=== PATIENT | female | born 1980 | race Caucasian/White ===

== ENCOUNTER 2024-03-09 11:00 | Day surgery (SDC) | payer MEDICAID ==
[2024-03-09] VITALS (13 sets, daily range): BP systolic 100–114; BP diastolic 60–70; PULSE 57–77; RESP 10–18; TEMP 98.1; O2SAT 95–100
[~2024-03-09] VITALS: Ht 165.1 cm; Wt 88.5 kg
[2024-03-09] MEDS: cefazolin 2gm/D5W 100mL 100 ML IV ONE (05:30)
[~2024-03-09 11:00] MED LIST: HYDR-3964 PO
[2024-03-09] MEDS: famotidine 20mg tablet PO ONE (11:43)
[2024-03-09] MEDS: ringers solution, lacted 1,000 ML IV SCH (11:44)
[2024-03-09] MEDS: INDOCYANINE GREEN 25 MG/10 ML VIAL IV ONE (11:48)
[2024-03-09 12:13] LABS: BASOPHILS % (AUTO) 0.6 % (0-1); EOSINOPHILS # (AUTO) 0.1 X10'3 (0-0.9); EOSINOPHILS % (AUTO) 1.7 % (0-6); HEMATOCRIT 27.3 % (35.0-45.0); HEMOGLOBIN 8.4 g/dl (12.0-16.0); LYMPHOCYTES # (AUTO) 1.3 X10'3 (1.1-4.8); LYMPHOCYTES % (AUTO) 20.8 % (21-51); MEAN CORPUSCULAR HEMOGLOBIN 20.6 PG (27.0-31.0); MEAN CORPUSCULAR HGB CONC 30.7 g/dL (33.0-36.5); MEAN PLATELET VOLUME 6.9 FL (7.4-10.4); MONOCYTES # (AUTO) 0.7 X10'3 (0-0.9); MONOCYTES % (AUTO) 10.4 % (2-12); NEUTROPHILS # (AUTO) 4.2 X10'3 (1.8-7.7); NEUTROPHILS % (AUTO) 66.5 % (42-75); PLATELET COUNT 287 X10'3 (140-440); RED BLOOD COUNT 4.08 X10'6 (4.20-5.60); RED CELL DISTRIBUTION WIDTH 17.4 % (11.5-14.5); WHITE BLOOD COUNT 6.4 X10'3 (4.5-11.0)
[2024-03-09 12:24] LABS: ALANINE AMINOTRANSFERASE 24 U/L (12-78); ALBUMIN 3.6 G/DL (3.4-5.0); ALBUMIN/GLOBULIN RATIO 1.2 (1.1-1.5); ALKALINE PHOSPHATASE 63 IU/L (46-116); ANION GAP 9 (8-16); ASPARTATE AMINO TRANSFERASE 17 U/L (10-37); BILIRUBIN,TOTAL 0.5 MG/DL (0.1-1.0); BLOOD UREA NITROGEN 8 MG/DL (7-18); BUN/CREATININE RATIO 12.1 (10.0-20.0); CALCIUM 8.5 MG/DL (8.5-10.1); CHLORIDE 103 MMOL/L (99-107); CREATININE 0.66 MG/DL (0.40-0.90); GLUCOSE 86 MG/DL (70-104); POTASSIUM 3.6 MMOL/L (3.5-5.1); SODIUM 138 MMOL/L (135-145); TOTAL CARBON DIOXIDE 26.4 MMOL/L (24-32); TOTAL PROTEIN 6.6 G/DL (6.4-8.2); eCRCL 97 ML/MIN; eGFR > 90 ML/MIN
[2024-03-09 12:31] LABS: ANISOCYTOSIS 1+; MICROCYTOSIS 2+; PLATELET ESTIMATE NORMAL
[2024-03-09 12:32] LABS: HYPOCHROMASIA 1+; POIKILOCYTOSIS FEW; POLYCHROMASIA FEW
[2024-03-09 12:52] LABS: HCG SERUM QL NEGATIVE
[2024-03-09] MEDS ORDERED: LIDOcaine 1% W/epiNEPHrine 1:100,000 20ml vial ONE (13:38)
[2024-03-09] MEDS ORDERED: BUPIVAcaine 2.5mg/ml inj 50ml vial (contains preservative) ONE (13:38)
[2024-03-09] MEDS ORDERED: ringers solution, lacted 1,000 ML IV SCH (13:40)
[2024-03-09] MEDS ORDERED: morphine 4 MG/ML inj SYRINge IV PRN (13:40)
[2024-03-09] MEDS ORDERED: fentaNYL/PF 50MCG/1 ML 2ML syringe IV PRN ×2 (13:40)
[2024-03-09] MEDS ORDERED: hydrALAZINE 20mg/ml inj. IV PRN (13:40)
[2024-03-09] MEDS ORDERED: ondansetron/PF 4mg/2ml inj IV PRN (13:40)
[2024-03-09] MEDS ORDERED: labetalol 20mg/4ml (5mg/ml) syringe IV PRN (13:40)
[2024-03-09] MEDS ORDERED: LIDOcaine 1% 30ml preserv. free vial ONE (13:41)
[2024-03-09] MEDS ORDERED: fentaNYL/PF 50MCG/1 ML 2ML syringe ONE (13:53)
[2024-03-09] MEDS ORDERED: sevoflurane 250ml liquid IH ONE (13:53)
[2024-03-09] MEDS ORDERED: rocuronium 10mg/ml inj IV ONE (13:54)
[2024-03-09] MEDS ORDERED: LIDOcaine 2% (20mg/ml) 5ml vial ONE (13:54)
[2024-03-09] MEDS ORDERED: glycopyrrolate 0.2mg/ml inj ONE (13:54)
[2024-03-09] MEDS ORDERED: propofol inj 20 ML IV ONE (13:54)
[2024-03-09] MEDS ORDERED: ondansetron/PF 4mg/2ml inj ONE (13:54)
[2024-03-09] MEDS ORDERED: acetaminophen 1,000mg/100ml IV 100 ML IV ONE (14:06)
[2024-03-09] MEDS: BUPIVAcaine 2.5mg/ml inj 50ml vial (contains preservative) IJ ONE (14:21)
[2024-03-09] MEDS ORDERED: ePHEDrine 50MG/ML INJ. ONE (14:25)
[2024-03-09] MEDS: morphine 2 MG/ML inj. syringe IV PRN (15:29)
[2024-03-09] MEDS: oxyCODONE/APAP 5-325mg tablet PO PRN (16:30)
== END 2024-03-09 16:50 | disposition home or self-care (01) ==
LOC: PAS 11:00
PROVIDERS: ATTEND Surgery
DX: K80.10 Calculus of gallbladder with chronic cholecystitis without obstruction (principal); E66.9 Obesity, unspecified; Z79.891 Long term (current) use of opiate analgesic; Z90.49 Acquired absence of other specified parts of digestive tract; Z98.891 History of uterine scar from previous surgery; Z68.32 Body mass index [BMI] 32.0-32.9, adult; Z83.3 Family history of diabetes mellitus; Z82.61 Family history of arthritis; Z80.3 Family history of malignant neoplasm of breast; Z80.0 Family history of malignant neoplasm of digestive organs; Z80.41 Family history of malignant neoplasm of ovary
CPT/HCPCS: 36415; 47563; 80053; 84703; 85025; J0131; J0690; J1100; J2270; J2405; J2704; J2710; J3010; J3490; J7030; J7120; S2900; Z7506; Z7508; Z7512; 85008; A4215; A4618; A7000